=== PATIENT | female | born 1980 | race Caucasian/White ===

== ENCOUNTER 2022-07-07 16:58 | Emergency (ER) | payer SELFPAY ==
[~2022-07-07] VITALS: Ht 147.3 cm; Wt 55.0 kg
[2022-07-07 17:08] VITALS: BP 113/74
[2022-07-07] MEDS ORDERED: IBUPROFEN 600MG TABLET PO ONE (22:00)
[2022-07-07] MEDS ORDERED: HYDROCODONE/ACETAMINOPHEN 5/325MG TABLET PO ONE (22:00)
== END 2022-07-07 23:27 | disposition left against medical advice (07) ==
LOC: ER 16:58
DX: T23.201A Burn of second degree of right hand, unspecified site, initial encounter (principal); T31.0 Burns involving less than 10% of body surface; X10.2XXA Contact with fats and cooking oils, initial encounter; Y93.89 Activity, other specified; Y92.89 Other specified places as the place of occurrence of the external cause; Y99.8 Other external cause status
CPT/HCPCS: 16020; 99282